=== PATIENT | female | born 1995 | race Asian ===

== ENCOUNTER 2019-04-01 14:03 | Emergency (ER) | payer MEDICAID ==
[~2019-04-01] VITALS: Ht 165.1 cm; Wt 63.5 kg
[2019-04-01] MEDS ORDERED: NKM (14:09)
--- NOTE | 2019-04-01 14:26 | NUR ---
ED Nurse Note: Patient walked in from home c/o pain on right ankle 12/15 started 2 days ago, patient denies trauma/injury. Skin intact. Patient states she took Motrin today, no relief. PA has seen the patient at bedside, awaiting for orders and will continue to monitor patient.
--- NOTE | 2019-04-01 14:32 | Emergency Room Report ---
History of Present Illness General Chief Complaint: Lower Extremity Injury Source: Patient Present Illness HPI 24-year-old female presents to the emergency department complaining of 8 out of 10 severity localized pain, swelling and tenderness to the dorsum of the right foot x2 days. Patient denies trauma or fall. Patient denies previous injury to the extremity denies fevers, chills, erythema, open wounds or bleeding. Patient denies bruising. Patient reports pain is exacerbated upon palpation. Patient states she has been taking 800 mg Motrin without relief of her symptoms. No other aggravating or relieving factors at this time. Denies paresthesias or loss of gross motor movements. Allergies: Coded Allergies: No Known Allergies (Unverified , 04/01/19) Patient History Past Medical History: see triage record Past Surgical History: none Pertinent Family History: none Last Menstrual Period: 04/01/2019 Now: No Reviewed Nursing Documentation: PMH: Agreed; PSxH: Agreed Nursing Documentation-PMH Past Medical History: No Stated History Review of Systems All Other Systems: negative except mentioned in HPI Physical Exam Vital Signs Date Time Temp Pulse Resp B/P (MAP) Pulse Ox O2 Delivery O2 Flow Rate FiO2 04/01/19 14:05 98.1 97 17 113/75 (88) 98 Room Air Sp02 EP Interpretation: reviewed, normal General Appearance: no apparent distress, alert, GCS 15, non-toxic Head: normocephalic, atraumatic Eyes: bilateral eye normal inspection, bilateral eye PERRL ENT: hearing grossly normal, normal voice Neck: full range of motion Respiratory: lungs clear, normal breath sounds, speaking full sentences Cardiovascular #1: regular rate, rhythm Gastrointestinal: normal bowel sounds, non tender, soft Rectal: deferred Genitourinary: normal inspection Musculoskeletal: back normal, normal range of motion, gait/station normal, tender - dorsum of the right foot, localized swelling, swelling - dorsum of the right foot. , other - able to bear weight Neurologic: alert, motor strength/tone normal, oriented x3, sensory intact, responsive, speech normal Psychiatric: judgement/insight normal Lymphatic: no adenopathy Medical Decision Making PA Attestation Dr. Pike is my supervising Physician whom patient management has been discussed with. Diagnostic Impression: Primary Impression: Ganglion cyst of foot ER Course Pt. presents to the ED c/o tender bump on the right foot x 2 days. Ddx considered but are not limited to Fracture, dislocation, contusion, abscess , Sprain/Strain/Spasm, Ganglion cyst Vital signs: are WNL, pt. is afebrile H&PE are most consistent with ganglion cyst no neurovascular compromise, no evidence of infection or lesions. - Mass is freely mobile nodule that is approximately 2 cm in size. ORDERS: -none required at this time dx is clinical ED INTERVENTIONS: -Francisco wrap applied to the right foot by fuel retrofitting technician. Pt. remains neurovascularly intact. DISCHARGE: At this time pt. is stable for d/c to home. Will provide printed patient care instructions, and any necessary prescriptions. Care plan and follow up instructions have been discussed with the patient prior to discharge. Other X-Ray Diagnostic Results Other X-Ray Diagnostic Results : X-Ray ordered: Right foot # of Views/Limited Vs Complete: 3 View Indication: Pain EP Interpretation: Yes PA Xray: Interpretation reviewed, by supervising MD, and agrees with findings. Interpretation: no dislocation, no soft tissue swelling, no fractures Impression: No acute disease Electronically Signed by: Adriana Russell PA-C Last Vital Signs Date Time Temp Pulse Resp B/P (MAP) Pulse Ox O2 Delivery O2 Flow Rate FiO2 04/01/19 14:05 98.1 97 17 113/75 (88) 98 Room Air Disposition: HOME, SELF-CARE Condition: Stable Scripts Naproxen* (NAPROXEN*) 500 Mg Tablet 500 MG ORAL TWICE A DAY, #20 TAB Prov: Adriana Russell 04/01/19 Referrals: [facility] Departure Forms: Return to Work Return to Work Date: Apr 05, 2019 Work Restrictions: No Heavy Lifting, No Prolonged Standing Other Restrictions: limited standing/walking. May return Sooner if Symptoms have resolved. Return to Full Activity: Apr 08, 2019 Patient Instructions: Ganglion Cyst Additional Instructions: Take medications as directed. Follow up with a Primary Care Provider in 3-5 days, even if your symptoms have resolved. --Please review list of primary care clinics, if you do not already have a primary care provider Return sooner to ED if new symptoms occur, or current symptoms become worse. - Please note that this Emergency Department Report was dictated using [employer] technology software, occasionally this can lead to erroneous entry secondary to interpretation by the dictation equipment. Adriana Russell Apr 01, 2019 14:32
--- NOTE | 2019-04-01 14:40 | NUR ---
ED Nurse Note: xray at bedside
[2019-04-01] MEDS ORDERED: HYDROcodone/Acetamin 5/325 tab ORAL ONE (15:15)
--- NOTE | 2019-04-01 15:19 | NUR ---
ED Nurse Note: edger technician at bedside for dash wrap on right foot.
[2019-04-01] MEDS ORDERED: NAPROXEN500 M2 ORAL (15:22)
--- NOTE | 2019-04-01 15:25 | NUR ---
ER DISCHARGE NOTE: Patient is cleared to be discharged per ERMD, pt is aox4, on room air, with stable vital signs. pt was given dc instructions, pt was able to verbalize understanding, pt id band removed. pt is able to ambulate with steady gait. pt took all belongings.
[2019-04-01 15:26] VITALS: BP 113/75
--- NOTE | 2019-04-01 16:15 | Diagnostic Imaging Report ---
Indication: Pain. Right foot Comparison: None Findings: 3 views of the right foot were obtained. No acute fractures, malalignment, erosions or periostitis are identified. Impression: No acute findings.
== END 2019-04-01 15:25 | disposition home or self-care (01) ==
LOC: EMR 15:20
DX: M67.471 Ganglion, right ankle and foot (principal)
CPT/HCPCS: 73630; Z7502; 99283

== ENCOUNTER 2020-01-05 19:07 | Emergency (ER) | payer MEDICAID ==
[~2020-01-05] VITALS: Ht 160 cm; Wt 66.7 kg
[~2020-01-05 19:07] MED LIST: NAPROXEN500 M2 ORAL; NKM
[2020-01-05] MEDS ORDERED: Acetaminophen 500mg (ES) tab ORAL ONE (19:45)
--- NOTE | 2020-01-05 19:45 | NUR ---
ED Nurse Note: Recieved pt from home, here with c/o vaginal bleeding with , pt states she is 8 weeks by LMP, no care, pt has cramping in lower abdomen at 8/10 with scant dark-red bleeding noted, first pregnance a
--- NOTE | 2020-01-05 19:46 | NUR ---
ED Nurse Note: continued: first , pt assisted with urine sample and placed on cardiac monitoring, will resume care as ordered and continue to closely monitor,.
[2020-01-05 19:58] LABS: APPEARANCE,URINE SLIGHTLY CLOUDY; BILIRUBIN, URINE NEGATIVE (NEGATIVE); COLOR,URINE PALE YELLOW; GLUCOSE, URINE (UA) NEGATIVE (NEGATIVE); KETONES,URINE NEGATIVE (NEGATIVE); LEUKOCYTE ESTERASE ,URINE NEGATIVE (NEGATIVE); NITRITE,URINE NEGATIVE (NEGATIVE); PH,URINE 7 (4.5-8.0); PROTEIN,URINE NEGATIVE (NEGATIVE); UROBILINOGEN,URINE NORMAL MG/DL (0.0-1.0)
[2020-01-05 20:06] LABS: BASOPHILS % (AUTO) 1.2 % (0.0-2.0); EOSINOPHILS % (AUTO) 5.8 % (0.0-3.0); HEMATOCRIT 41.1 % (37.0-47.0); HEMOGLOBIN 13.4 G/DL (12.0-16.0); LYMPHOCYTES % (AUTO) 31.4 % (20.0-45.0); MEAN CORPUSCULAR VOLUME 84 FL (80-99); MONOCYTES % (AUTO) 5.6 % (1.0-10.0); PLATELET COUNT 266 K/UL (150-450); RED CELL DISTRIBUTION WIDTH 13.4 % (11.6-14.8); WHITE BLOOD COUNT 8.7 K/UL (4.8-10.8)
[2020-01-05 20:14] LABS: ANION GAP 8 mmol/L (5-15); BLOOD UREA NITROGEN 11 mg/dL (7-18); CALCIUM 9.3 MG/DL (8.5-10.1); CARBON DIOXIDE 28 MMOL/L (21-32); CHLORIDE 102 MMOL/L (98-107); CREATININE 0.8 MG/DL (0.55-1.30); POTASSIUM 3.8 MMOL/L (3.5-5.1); SODIUM 138 MMOL/L (136-145)
[2020-01-05 20:19] LABS: ALANINE AMINOTRANSFERASE 21 U/L (12-78); ALBUMIN 4.1 G/DL (3.4-5.0); ALBUMIN/GLOBULIN RATIO 1.4 (1.0-2.7); ALKALINE PHOSPHATASE 53 U/L (46-116); ASPARTATE AMINO TRANSFERASE 20 U/L (15-37); BILIRUBIN,TOTAL 0.1 MG/DL (0.2-1.0)
--- NOTE | 2020-01-05 21:14 | Emergency Room Report ---
History of Present Illness General Chief Complaint: Complications Source: Patient Present Illness HPI 24-year-old female presents the ED for evaluation. States that she is 8 weeks based on LMP. Found out last week. States starting yesterday she noticed some cramping and spotting. Pain is 8 out of 10, cramping, nonradiating. Has not yet had an ultrasound. Has not yet had care. Denies nausea or vomiting. No other aggravating relieving factors. 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 Patient History Past Medical History: none Past Surgical History: none Pertinent Family History: none Social History: Denies: smoking, alcohol use, drug use Last Menstrual Period: 11/14/2019 Now: Yes : 1 Para: 0 Immunizations: UTD Reviewed Nursing Documentation: PMH: Agreed; PSxH: Agreed Nursing Documentation-PMH Past Medical History: No Stated History Review of Systems All Other Systems: negative except mentioned in HPI Physical Exam Vital Signs Date Time Temp Pulse Resp B/P (MAP) Pulse Ox O2 Delivery O2 Flow Rate FiO2 01/05/20 19:21 98.4 74 18 116/79 (91) 99 Room Air Sp02 EP Interpretation: reviewed, normal General Appearance: no apparent distress, alert, GCS 15, non-toxic Head: normocephalic, atraumatic Eyes: bilateral eye normal inspection, bilateral eye PERRL ENT: hearing grossly normal, normal pharynx, no angioedema, normal voice Neck: full range of motion, supple/symm/no masses Respiratory: chest non-tender, lungs clear, normal breath sounds, speaking full sentences Cardiovascular #1: regular rate, rhythm, no edema Cardiovascular #2: 2+ carotid (R), 2+ carotid (L), 2+ radial (R), 2+ radial (L) , 2+ dorsalis pedis (R), 2+ dorsalis pedis (L) Gastrointestinal: normal bowel sounds, non tender, soft, non-distended, no guarding, no rebound Rectal: deferred Genitourinary: normal inspection, no CVA tenderness Musculoskeletal: back normal, normal range of motion, gait/station normal, non- tender Neurologic: alert, motor strength/tone normal, oriented x3, sensory intact, responsive, speech normal Psychiatric: judgement/insight normal, memory normal, mood/affect normal, no suicidal/homicidal ideation Reflexes: 3+ bicep (R), 3+ bicep (L), 3+ tricep (R), 3+ tricep (L), 3+ knee (R) , 3+ knee (L) Lymphatic: no adenopathy Medical Decision Making Diagnostic Impression: Primary Impression: Miscarriage ER Course Miscarriage hospital Course 24-year-old presents to ED complaining of vaginal bleeding. approxiamtely 8 weeks pregant Differential diagnoses include: gastrits, gastroenterits, ectopic , ovarian torsion/cyst, UTI Clinical course Patient placed on stretcher in ED. After initial history and physical I ordered labs, IV fluids and pelvic ultrasound. Labs-no leukocytosis, electrolytes okay, beta hCG 899, UA unremarkable Pelvic ultrasound- no IUP detected Clinically, findings consistent with miscarriage. Discussed findings with patient. For discharge for close outpatient follow-up. States she has an OB/ [employer] appointment on January 06. Diagnosis - miscarraige Stable and discharged to home. Followup with PMD/CLERK GUIDE. Return to ED if symptoms recur or worsen Laboratory Tests Test 01/05/20 19:50 White Blood Count 8.7 K/UL (4.8-10.8) Red Blood Count 4.90 M/UL (4.20-5.40) Hemoglobin 13.4 G/DL (12.0-16.0) Hematocrit 41.1 % (37.0-47.0) Mean Corpuscular Volume 84 FL (80-99) Mean Corpuscular Hemoglobin 27.3 PG (27.0-31.0) Mean Corpuscular Hemoglobin Concent 32.6 G/DL (32.0-36.0) Red Cell Distribution Width 13.4 % (11.6-14.8) Platelet Count 266 K/UL (150-450) Mean Platelet Volume 7.4 FL (6.5-10.1) Neutrophils (%) (Auto) 56.0 % (45.0-75.0) Lymphocytes (%) (Auto) 31.4 % (20.0-45.0) Monocytes (%) (Auto) 5.6 % (1.0-10.0) Eosinophils (%) (Auto) 5.8 % (0.0-3.0) H Basophils (%) (Auto) 1.2 % (0.0-2.0) Urine Color Pale yellow Urine Appearance Slightly cloudy Urine pH 7 (4.5-8.0) Urine Specific Edson 1.010 (1.005-1.035) Urine Protein Negative (NEGATIVE) Urine Glucose (UA) Negative (NEGATIVE) Urine Ketones Negative (NEGATIVE) Urine Blood 1+ (NEGATIVE) H Urine Nitrite Negative (NEGATIVE) Urine Bilirubin Negative (NEGATIVE) Urine Urobilinogen Normal MG/DL (0.0-1.0) Urine Leukocyte Esterase Negative (NEGATIVE) Urine RBC 5-10 /HPF (0 - 2) H Urine WBC 5-10 /HPF (0 - 2) H Urine Squamous Epithelial Cells Many /LPF (NONE/OCC) H Urine Bacteria Few /HPF (NONE) Urine HCG, Qualitative Positive (NEGATIVE) Sodium Level 138 MMOL/L (136-145) Potassium Level 3.8 MMOL/L (3.5-5.1) Chloride Level 102 MMOL/L (98-107) Carbon Dioxide Level 28 MMOL/L (21-32) Anion Gap 8 mmol/L (5-15) Blood Urea Nitrogen 11 mg/dL (7-18) Creatinine 0.8 MG/DL (0.55-1.30) Estimat Glomerular Filtration Rate > 60 mL/min (>60) Glucose Level 104 MG/DL (74-106) Calcium Level 9.3 MG/DL (8.5-10.1) Total Bilirubin 0.1 MG/DL (0.2-1.0) L Aspartate Amino Transf (AST/SGOT) 20 U/L (15-37) Alanine Aminotransferase (ALT/SGPT) 21 U/L (12-78) Alkaline Phosphatase 53 U/L (46-116) Total Protein 7.1 G/DL (6.4-8.2) Albumin 4.1 G/DL (3.4-5.0) Globulin 3.0 g/dL Albumin/Globulin Ratio 1.4 (1.0-2.7) Lipase 151 U/L (73-393) Human Chorionic Gonadotropin, Quant 899 mIU/mL (1-6) H CT/MRI/US Diagnostic Results CT/MRI/US Diagnostic Results : Imaging Test Ordered: OB US Impression EXAM: US First Trimester , Transabdominal and Transvaginal CLINICAL HISTORY: Gravid female with abnormal vaginal bleeding. TECHNIQUE: Real-time transabdominal and transvaginal obstetrical ultrasound of the maternal pelvis and a first trimester with image documentation. Transvaginal imaging was used for better evaluation of the fetus and adnexa. COMPARISON: No previous studies. FINDINGS: Gestation: No intrauterine gestation detected. Early intrauterine or ectopic gestation cannot be excluded. Placenta/amniotic fluid: Cannot be adequately evaluated due to the early gestational age. Uterus/cervix: The uterus measures 8.5 x 3.6 x 3.4 cm in extent. Endometrial stripe measures 0.5 cm. No myometrial mass. Ovaries: The right ovary measures 3.8 x 1.7 x 2.4 centers P Left ovary measures 1.4 x 1.5 x 2.7 cm. Follicles noted within the ovaries. Flow is demonstrated to both ovaries. Free fluid: No free fluid. IMPRESSION: 1. No intrauterine gestation is noted. 2. Endometrial stripe is not thickened. 3. Early intrauterine or ectopic gestation cannot be excluded. 4. No free fluid. 5. Flow to both ovaries. 6. No focal ovarian abnormalities. Last Vital Signs Date Time Temp Pulse Resp B/P (MAP) Pulse Ox O2 Delivery O2 Flow Rate FiO2 01/05/20 19:21 98.4 74 18 116/79 (91) 99 Room Air Status: improved Disposition: HOME, SELF-CARE Condition: Stable Olivier Pike MD Jan 05, 2020 21:14
[2020-01-05 21:35] VITALS: BP 116/79
--- NOTE | 2020-01-05 21:35 | NUR ---
ED Nurse Note:ER DISCHARGE NOTE: Patient is cleared to be discharged per ERMD, pt is aox4, on room air, with stable vital signs. pt was given dc and prescription instructions, pt was able to verbalize understanding, pt id band and iv site removed without complications. pt is able to ambulate with steady gait. pt took all belongings.
--- NOTE | 2020-01-05 22:05 | Diagnostic Imaging Report ---
EXAM: US First Trimester , Transabdominal and Transvaginal CLINICAL HISTORY: Gravid female with abnormal vaginal bleeding. TECHNIQUE: Real-time transabdominal and transvaginal obstetrical ultrasound of the maternal pelvis and a first trimester with image documentation. Transvaginal imaging was used for better evaluation of the fetus and adnexa. COMPARISON: No previous studies. FINDINGS: Gestation: No intrauterine gestation detected. Early intrauterine or ectopic gestation cannot be excluded. Placenta/amniotic fluid: Cannot be adequately evaluated due to the early gestational age. Uterus/cervix: The uterus measures 8.5 x 3.6 x 3.4 cm in extent. Endometrial stripe measures 0.5 cm. No myometrial mass. Ovaries: The right ovary measures 3.8 x 1.7 x 2.4 centers P Left ovary measures 1.4 x 1.5 x 2.7 cm. Follicles noted within the ovaries. Flow is demonstrated to both ovaries. Free fluid: No free fluid. IMPRESSION: 1. No intrauterine gestation is noted. 2. Endometrial stripe is not thickened. 3. Early intrauterine or ectopic gestation cannot be excluded. 4. No free fluid. 5. Flow to both ovaries. 6. No focal ovarian abnormalities.
--- NOTE | 2020-01-05 22:17 | Diagnostic Imaging Report ---
EXAM: US Pelvis Transvaginal and US Duplex Arterial/Venous of the Pelvis, Complete CLINICAL HISTORY: BLD TECHNIQUE: Real-time transvaginal pelvic ultrasound with image documentation. Transvaginal imaging was used for better evaluation of the endometrium and adnexa. Real-time duplex ultrasound scan of the arterial and venous flow of the pelvis with color Doppler flow and spectral waveform analysis. COMPARISON: No previous studies. FINDINGS: Uterus/cervix: Endometrial stripe measures 0.5 centers. The uterus measures 8.5 x 3.6 x 3.4 cm. No myometrial mass. Right ovary: Right ovary measures 3.8 x 1.7 x 2.4 cm. Follicles within the ovaries. Flow to both ovaries. No torsion. Left ovary: Left ovary measures 1.4 x 1.5 x 2.7 cm. Free fluid: No free fluid. Bladder: Empty bladder which cannot be evaluated with this probe. Other findings: No intrauterine gestation is noted. IMPRESSION: 1. Unremarkable imaging of the pelvic viscera. 2. No intrauterine gestation. 3. Early intrauterine or ectopic gestation cannot be excluded. Clinical correlation and correlation with laboratory values are advised.
== END 2020-01-05 21:35 | disposition home or self-care (01) ==
LOC: EMR 19:30
DX: O03.9 Complete or unspecified spontaneous abortion without complication (principal)
CPT/HCPCS: 36415; 76801; 76817; 80053; 81003; 81025; 83690; 84702; 85025; 96360; J7030; Z7502; 99284

== ENCOUNTER 2020-02-11 13:15 | Emergency (ER) | payer MEDICAID ==
[~2020-02-11] VITALS: Ht 160 cm; Wt 65.8 kg
--- NOTE | 2020-02-11 13:22 | NUR ---
ED Nurse Note: Pt walked in from home c/o right ear pain x 1 day. Pt reports the pain feeling like "pressure." Pt gets no relief from ibuprofen. Respirations even and unlabored on room air. Vitals stable as documented. A+Ox4, speaking in complete sentences.
[2020-02-11 13:25] VITALS: BP 133/82
--- NOTE | 2020-02-11 13:32 | Emergency Room Report ---
History of Present Illness General Chief Complaint: Earache Source: Patient Present Illness HPI 24-year-old female with no significant past medical history here complaining of 2 days of right ear pain rating is mostly painful at nighttime. Denies any recent swimming. Denies fever and chills, cough or congestion or shortness of breath, sore throat she has a sore throat. Denies any diarrhea, loss of taste or smell. Has been taking [id number] ibuprofen with minimal relief. Denies . Denies vertigo, tinnitus, hearing loss, dizziness and headache. No mastoid tenderness noted Allergies: Coded Allergies: No Known Allergies (Unverified , 04/01/19) COVID-19 Screening Contact w/high risk pt: No Experienced COVID-19 symptoms?: No COVID-19 Testing performed BLEACHING SUPERVISOR: No Patient History Past Medical History: see triage record Past Surgical History: none Pertinent Family History: none Now: No Immunizations: UTD Reviewed Nursing Documentation: PMH: Agreed; PSxH: Agreed Nursing Documentation-PMH Past Medical History: No Stated History Review of Systems All Other Systems: negative except mentioned in HPI Physical Exam Vital Signs Date Time Temp Pulse Resp B/P (MAP) Pulse Ox O2 Delivery O2 Flow Rate FiO2 02/11/20 13:20 98.1 74 15 127/87 (100) 98 Room Air Sp02 EP Interpretation: reviewed, normal General Appearance: no apparent distress, alert, GCS 15, non-toxic Head: normocephalic, atraumatic Eyes: bilateral eye normal inspection, bilateral eye PERRL ENT: normal pharynx, no angioedema, normal voice, uvula midline, other - Pus in right ear canal TM erythematous Neck: full range of motion, supple, no meningismus, supple/symm/no masses Respiratory: chest non-tender, lungs clear, normal breath sounds, speaking full sentences Cardiovascular #1: regular rate, rhythm, no edema Gastrointestinal: normal bowel sounds, non tender, soft, non-distended, no guarding, no rebound Rectal: deferred Genitourinary: no CVA tenderness Musculoskeletal: back normal Neurologic: alert, motor strength/tone normal, oriented x3, sensory intact, responsive, speech normal Psychiatric: judgement/insight normal, memory normal, mood/affect normal, no suicidal/homicidal ideation Skin: no rash Lymphatic: no adenopathy Medical Decision Making PA Attestation All diagnoses and treatment plans were reviewed and discussed with my supervising physician Dr. Breaux Diagnostic Impression: Primary Impression: Otitis media ER Course 24-year-old female with no significant past medical history here complaining of 2 days of right ear pain rating is mostly painful at nighttime. Denies any recent swimming. Denies fever and chills, cough or congestion or shortness of breath, sore throat she has a sore throat. Denies any diarrhea, loss of taste or smell. Has been taking [id number] ibuprofen with minimal relief. Denies . Denies vertigo, tinnitus, hearing loss, dizziness and headache. No mastoid tenderness noted Ddx considered but are not limited to: strep pharyngitis, URI, tonsillitis, peritonsillar abscess, influneza, otitis media, otitis externa,mastoiditis Vital signs: are WNL, pt. is afebrile H&PE are most consistent with: OM ORDERS: Augmentin, ibuprofen ED INTERVENTIONS: None required at this time. DISCHARGE: At this time pt. is stable for d/c to home. Will provide printed patient care instructions, and any necessary prescriptions. Care plan and follow up instructions have been discussed with the patient prior to discharge. Take medication as directed, follow primary care provider, if worsening symptoms return to emergency room Last Vital Signs Date Time Temp Pulse Resp B/P (MAP) Pulse Ox O2 Delivery O2 Flow Rate FiO2 02/11/20 13:20 98.1 74 15 127/87 (100) 98 Room Air Disposition: HOME, SELF-CARE Condition: Stable Scripts Ibuprofen (Ibu) 800 Mg Tablet 800 MG PO QHS, #10 TAB Prov: Hellen Rios 02/11/20 Amoxicillin/Potassium Clav 875-125* (AUGMENTIN 875-125 TABLET*) 1 Each Tablet 1 TAB ORAL TWICE A DAY for 10 Days, #20 TAB Prov: Hellen Rios 02/11/20 Patient Instructions: Otitis Media, Adult, [id number] Additional Instructions: Take medication as directed, follow-up with your primary care provider, worsening symptoms return to emergency room Hellen Rios Feb 11, 2020 13:32
[2020-02-11] MEDS ORDERED: AUGMENTIN 875-1 EAC1 ORAL (13:33)
[2020-02-11] MEDS ORDERED: IBU800 MG PO (13:33)
[2020-02-11 13:46] VITALS: BP 139/78
--- NOTE | 2020-02-11 13:46 | NUR ---
ED Nurse Note: Pt cleared by health care Provider for discharge. DC instructions/prescription were given and explained to pt and verbalized understanding of teachings. All medical deviecs such as ID band removed. Pt is AAO x4, ambulatory and left with all personal belongings.
== END 2020-02-11 13:46 | disposition home or self-care (01) ==
LOC: EMR 13:37
DX: H66.91 Otitis media, unspecified, right ear (principal)
CPT/HCPCS: 99282